=== PATIENT | male | born 1955 | race Caucasian/White ===

== ENCOUNTER 2019-02-10 12:25 | Emergency (ER) | payer MEDICAID ==
[~2019-02-10] VITALS: Ht 175.3 cm; Wt 104.5 kg
[2019-02-10 12:31] VITALS: BP 113/74
[2019-02-10] MEDS ORDERED: CEPH-572 PO (13:05)
== END 2019-02-10 13:34 | disposition home or self-care (01) ==
LOC: EDBD 12:26 → ER 12:26
DX: L03.114 Cellulitis of left upper limb (principal); L03.113 Cellulitis of right upper limb; L73.9 Follicular disorder, unspecified
CPT/HCPCS: 99283